=== PATIENT | male | born 1980 | race Hispanic/Latino ===

== ENCOUNTER → 2020-04-22 | Outpatient (CLI) | payer OTHER ==
[~2020-04-22] MED LIST: IOHEXOL-350 75 ML VIAL IV ONE
== END | disposition home or self-care (01) ==
LOC: RAH 09:05
PROVIDERS: ATTEND Urology
DX: N13.4 Hydroureter (principal)
CPT/HCPCS: 74400; Q9967

== ENCOUNTER 2022-12-15 12:00 | Observation (INO) | payer OTHER ==
[~2022-12-15] VITALS: Ht 185.4 cm; Wt 89.7 kg
[2022-12-15 13:09] LABS: BASOPHILS % (AUTO) 0.4 % (0.0-5.0); EOSINOPHILS % (AUTO) 0.6 % (0.0-8.0); HEMATOCRIT 54.6 % (42-54); MEAN CORPUSCULAR HEMOGLOBIN 31.4 pg (27.0-33.0); MEAN CORPUSCULAR HGB CONC 33.2 g/dL (32.0-36.0); MEAN CORPUSCULAR VOLUME 94.8 fL (79-99); MONOCYTES % (AUTO) 6.2 % (3.0-13.0); NEUTROPHILS % (AUTO) 70.5 % (40.0-77.0); PLATELET COUNT (AUTO) 148 K/uL (130-400); RED BLOOD CELL COUNT(AUTO) 5.76 MIL/uL (4.50-6.20); RED CELL DISTRIBUTION WIDTH 12.9 % (11.0-15.5); WHITE BLOOD COUNT (AUTO) 9.5 K/uL (4.8-10.8)
[2022-12-15 13:16] LABS: CREATININE 1.7 mg/dL (0.5-1.5); POTASSIUM 4.4 mmol/L (3.5-5.1)
[2022-12-15 13:19] LABS: INR 1.09 (0.85-1.15); PROTHROMBIN TIME 11.8 SEC (9.6-11.6)
[2022-12-15 13:21] LABS: PARTIAL THROMBOPLASTIN TIME 26.3 SEC (26.3-35.5)
[2022-12-16 09:13] VITALS: BP 133/91
[2022-12-16] MEDS ORDERED: TIRZ2.5P SQ (09:22)
[2022-12-16] MEDS ORDERED: ROSU5TAB PO (09:22)
[2022-12-16] MEDS ORDERED: LISI10TA24 PO (09:22)
[2022-12-16] MEDS ORDERED: FINE10TA PO (09:22)
[2022-12-16] MEDS ORDERED: ABAC1TAB15 PO (09:22)
[2022-12-16] MEDS ORDERED: EMPA1TAB5 PO (09:22)
[2022-12-16] MEDS ORDERED: METO-391 PO (09:22)
[2022-12-17] VITALS (18 sets, daily range): BP systolic 120–170; BP diastolic 71–99
[2022-12-17] MEDS ORDERED: 0.9%NACL 1000ML 1,000 ML IV ONE (07:43)
[2022-12-17] MEDS ORDERED: LIDOCAINE HCL 1% MDV 50ML VIAL ONE (08:39)
[2022-12-17] MEDS ORDERED: HEPARIN 10,000 UNIT/10ML (1,000 UNIT/ML) VIAL ONE (08:39)
[2022-12-17] MEDS ORDERED: MEPERIDINE-PF 50 MG/ML SYG ONE (08:39)
[2022-12-17] MEDS ORDERED: MIDAZOLAM HCL 1 MG/ML 2ML VIAL ONE ×3 (08:39→10:15)
[2022-12-17] MEDS ORDERED: MEPERIDINE-PF 25 MG/ML SYG ONE (10:15)
[2022-12-17] MEDS ORDERED: METOPROLOL TARTRATE 1 MG/ML 5ML VIAL IV ONE ×3 (10:54→11:23)
[2022-12-17] MEDS ORDERED: ACETAMINOPHEN 325 MG TAB PO PRN (12:30)
[2022-12-17] MEDS ORDERED: ACETAMINOPHEN WITH CODEINE 1 TAB TAB PO PRN ×2 (12:30)
[2022-12-17] MEDS ORDERED: IVAB5TAB PO (12:52)
[2022-12-17 19:45] LABS: HEMATOCRIT 53.8 % (42-54); MEAN CORPUSCULAR HEMOGLOBIN 31.6 pg (27.0-33.0); MEAN CORPUSCULAR HGB CONC 33.6 g/dL (32.0-36.0); MEAN CORPUSCULAR VOLUME 94.1 fL (79-99); RED BLOOD CELL COUNT(AUTO) 5.72 MIL/uL (4.50-6.20); RED CELL DISTRIBUTION WIDTH 12.9 % (11.0-15.5); WHITE BLOOD COUNT (AUTO) 12.9 K/uL (4.8-10.8)
[2022-12-17 19:52] LABS: CREATININE 1.5 mg/dL (0.5-1.5); POTASSIUM 4.2 mmol/L (3.5-5.1)
[2022-12-17] MEDS: METOPROLOL SUCCINATE 50 MG TAB.SR.24H PO SCH (19:55)
[2022-12-17] MEDS ORDERED: Abacavir/Dolutegravir/Lamivudi (Triumeq Tablet) PO SCH (21:00)
[2022-12-18] VITALS: BP 143/76
[2022-12-18 04:00] VITALS: BP 114/71
[2022-12-18 08:00] VITALS: BP 145/88
[2022-12-18] MEDS ORDERED: EMPAGLIFLOZIN PO SCH (09:00)
[2022-12-18] MEDS ORDERED: LISINOPRIL 10 MG TABLET PO SCH (09:00)
[2022-12-18] MEDS ORDERED: (Finerenone (Kerendia) 10 MG) PO SCH (09:00)
[2022-12-18] MEDS ORDERED: METFORMIN HCL PO SCH (09:00)
[2022-12-18] MEDS: METOPROLOL SUCCINATE 50 MG TAB.SR.24H PO SCH (09:01)
[2022-12-24] MEDS ORDERED: Tirzepatide (Mounjaro) 2.5 MG SQ SCH (09:00)
== END 2022-12-18 11:10 | disposition home or self-care (01) ==
LOC: DAHIP 12-17 07:24 → EDSTATUS 12-17 12:00 → 4BH 12-17 15:02
PROVIDERS: ADMIT Internal Medicine Cardiovascular Disease; ATTEND Internal Medicine Cardiovascular Disease
DX: I47.1 Supraventricular tachycardia (principal); I10 Essential (primary) hypertension; E11.9 Type 2 diabetes mellitus without complications; E78.5 Hyperlipidemia, unspecified; Z87.442 Personal history of urinary calculi; Z79.899 Other long term (current) drug therapy; Z98.890 Other specified postprocedural states
CPT/HCPCS: 80048 ×2; 85025; 85610; 85730; 36415 ×2; 93005 ×2; 93620; 93623; 93613; 93621; 84484; 85027; 85378; 82948 ×5; 71045; C1894 ×5; C1732; C1730 ×4; C1731; A4649 ×2; G0378 ×22; J3490 ×4; J7030; J1644 ×3; J2250 ×3; J2175 ×2; A4215; A4223 ×3; A4222; A4221; A4663; A4216; A4606; 99156; 99157